=== PATIENT | male | born 1940 | race Caucasian/White ===

== ENCOUNTER 2021-03-31 20:39 | Emergency (ER) | payer OTHER ==
[~2021-03-31] VITALS: Ht 172.7 cm; Wt 76.2 kg
[~2021-03-31 20:39] MED LIST: AMITRIPTYLINE H10 M1 PO; AMOXICILLIN500 M1 PO; ASPIR 8181 MG PO; ATIVAN0.5 MG PO; GEMFIBROZIL 60600 MG PO; MAXZIDE-25 MG1 EACH PO; NEXIUM40 MG PO; NIFEDIPINE ER30 M1 PO; NORCO 5-325 TA1 EACH PO; ONDANSETRON HCL4 M2 PO; SINGULAIR 10 MG10 M1 PO; VENTOLIN HFA 1818 GM INH
[2021-03-31 21:18] LABS: ABSOLUTE EOSINOPHILS 0.2 thou/uL (0.0-0.7); ABSOLUTE LYMPHOCYTES 0.7 thou/uL (0.8-5.3); ABSOLUTE MONOCYTES 0.7 thou/uL (0.0-1.2); ABSOLUTE NEUTROPHILS 5.5 thou/uL (1.6-8.1); BASOPHILS 0.4 %; HEMATOCRIT 46.7 % (42.0-52.0); HEMOGLOBIN 15.3 gm/dL (14.0-18.0); LYMPHOCYTES 10.3 %; MCH 28.6 pg (26.0-34.0); MCHC 32.9 g/dL (28.0-37.0); MONOCYTES 9.8 %; MPV 7.6 fl. (7.2-11.1); NUCLEATED RBCS 0 /100WBC; PLATELET COUNT* 243 thou/uL (150-400); POLYS 76.5 %; RBC 5.37 mil/uL (4.50-6.00); WBC 7.2 thou/uL (4.0-11.0)
[2021-03-31 21:27] LABS: CALCIUM 9.3 mg/dL (8.5-10.1); CREATININE 1.3 mg/dL (0.6-1.3); POTASSIUM 4.9 mmol/L (3.5-5.1)
[2021-03-31 21:32] LABS: ALBUMIN 3.3 g/dL (3.4-5.0); MAGNESIUM 1.9 mg/dL (1.8-2.4); TOTAL BILIRUBIN 0.5 mg/dL (<0.1-1.0)
[2021-03-31 21:33] LABS: APTT 27.6 Seconds (25.0-31.3); INR 1.1
[2021-03-31 21:42] LABS: BE -0.6 mmol/L (-2 to +3); PCO2 31.8 mmHg (35.0-45.0); pH 7.461 (7.340-7.450)
[2021-03-31 21:43] LABS: PO2 57.7 mmHg (75.0-100.0)
[2021-03-31 21:48] LABS: URINE BILIRUBIN NEGATIVE (Negative); URINE BLOOD NEGATIVE (Negative); URINE CLARITY CLEAR; URINE COLOR YELLOW; URINE GLUCOSE-RANDOM NEGATIVE (Negative); URINE KETONES NEGATIVE (Negative); URINE LEUKOCYTES-REFLEX NEGATIVE (Negative); URINE NITRITE-REFLEX NEGATIVE (Negative); URINE PROTEIN 3+ (Negative); URINE SPECIFIC GRAVITY 1.025 (1.005-1.030)
[2021-03-31 22:12] LABS: CRYSTALS None Seen /LPF (None Seen); FINE GRANULAR CASTS 4-10 Moderate /LPF (None Seen); HYALINE CASTS 4-10 Moderate /LPF (None Seen); MUCUS 4-6 Moderate strn/LPF (None Seen); SQUAMOUS 0-3 Few /LPF (0-3); URINE RBC 3-10 Few /HPF (0-2); URINE WBC-REFLEX 0-5 Rare /HPF (0-5)
[2021-04-01 02:48] VITALS: BP 138/85
--- NOTE | 2021-04-01 11:04 | EKG ---
[place] [address] ELECTROCARDIOGRAM REPORT Name: MARÍA RIVAS Room: [facility]#: [id number] Admission: 03/31/21 Attend Phys: Discharge: 04/01/21 Date of : 40 Date of Service: 03/31/212037 Report #: [id number] THIS REPORT FOR: //name// [facility] ED Test Date: 2021-03-31 Test Time: 20:38:14 Pat Name: MARÍA RIVAS Department: Room: Gender: Private Client Advisor: [place] : 1940 Requested By: Loretta Renee Order Number: [id number] MD: Efren Tavares Measurements Intervals [place] Rate: 124 P: -84 TX: 97 QRS: 163 QRSD: 158 T: 16 QT: 374 QTc: 538 Interpretive Statements Sinus tachycardia Ventricular premature complex Right bundle branch block Baseline wander in lead(s) II,III,aVF,V6 No previous ECG available for comparison Electronically Signed On 04-01-2021 11:04:26 SENIOR FINANCE MANAGER by Efren Tavares [email or web address] <ELECTRONICALLY SIGNED> By: Efren Tavares MD, [facility] 04/01/21 1104 37 37 Efren Tavares MD, [facility] /EPI
== END 2021-04-01 02:48 | disposition home or self-care (01) ==
LOC: M.ERS 20:39
PROVIDERS: Personal Emergency Response Attendant
DX: J96.90 Respiratory failure, unspecified, unspecified whether with hypoxia or hypercapnia (principal); Z20.822 Contact with and (suspected) exposure to COVID-19; J84.9 Interstitial pulmonary disease, unspecified; I10 Essential (primary) hypertension; Z79.82 Long term (current) use of aspirin; Z79.899 Other long term (current) drug therapy

== ENCOUNTER 2021-04-02 07:56 | Inpatient (IN) | payer OTHER ==
[~2021-04-02] VITALS: Ht 172.7 cm; Wt 75.3 kg
--- NOTE | ~2021-04-02 | EMS ---
[facility] [address] [place] [address] EMS Patient Care Report Name: MARÍA RIVAS Room: [facility]#: [id number] Admission: 04/02/21 Attend Phys: Discharge: Date of : 40 Report #: [id number] THIS REPORT FOR: //name// Report Transmitted: 04/02/2021 09:03 EMS Care Summary [facility] Incident 21-1221 @ 04/02/2021 07:05 Incident Location [address] [place] [address] Patient MARÍA RIVAS Male, 80 Years 1940 Patient Address [address] [place] [address] Patient History Chronic Obstructive Pulmonary Disease (COPD),Diabetes, Patient Allergies No known allergies, Patient Medications DuoNeb, Chief Complaint respiratory distress Disposition Transported Lights/Oxly Dispatch Reason Breathing Problem Transported To [facility] Narrative Dispatched to a residence for 80y/0 male SOB. Upon arrival pt. was sitting in a chair in tripod position. Pt. had O2 via NC at 4lpm. Pt. was A&O and able to speak 1 to 2 words at a time. Pt. fingers were blue and he was using accessory muscles when breathing. Pt. stated that he injured [place] [address] EMS Patient Care Report Name: MARÍA RIVAS Room: [facility]#: [id number] Admission: 04/02/21 Attend Phys: Discharge: Date of : 40 Report #: [id number] was treated and released by ED. Pt. stated that he has not been able to take a full breath since then. Pt. has history of COPD. Pt. had Duoneb x3 at home. Breath sounds were wheezes in upper robb and rales in left lower field. Pt. was moved to ambulance where Albuterol neb. was started, IV was started, 125mg Solu-Medrol IV administered. Pt. initial O2 sat. was 85% on home O2 and improved to 95% post treatments. Pt. stated that he felt able to take deeper breaths post treatments. Pt. fingers were less blue. Pt. was speaking more complete sentences. Pt. was transported emergency to [place] for emergency and respiratory services. Initial Vitals @07:30P: 150,R: 30,BP: 160/100,GCS: 15,SpO2: 93,Revised Trauma: 11, @07:43P: 150,R: 30,BP: 170/102,GCS: 15,SpO2: 95,Revised Trauma: 11, @07:48 @07:14P: 140,R: 32,BP: 144/93,GCS: 15,SpO2: 85,Revised Trauma: 11, Impression Acute Respiratory Distress (Dyspnea) Procedures @PTAOxygen FlowRate: 4 Device: Nasal Cannula (NC) Response: UnchangedSucceeded @07:30 Oxygen FlowRate: 6 Device: Nebulizer Response: ImprovedSucceeded @07:25 IV Therapy - Saline Lock 20cc (20 ga) Site: Hand-Right Response: UnchangedSucceeded @07:30 Albuterol - 3 Milligrams (mg) - Nebulized Response: Improved @07:45 Albuterol - 3 Milligrams (mg) - Nebulized Response: Improved @07:30 Solu-Medrol - 125 Milligrams (mg) - Inhalation Response: Improved Timeline RAYON CONER,Oxygen FlowRate: 4 Device: Nasal Cannula (NC) Response: UnchangedSucceeded, 07:03,Call Received 07:05,Dispatched 07:08,En Route 07:12,Initial Responder On Scene 07:12,On Scene 07:13,At Patient 07:14,BP: 144/93 M,PULSE: 140,RR: 32 R,SPO2: 85 Ox,ETCO2: ,BG: ,PAIN: ,GCS: 15, 07:25,IV Therapy - Saline Lock 20cc 20 ga Site: Hand-Right,Response: UnchangedSucceeded, 07:30,Oxygen FlowRate: 6 Device: Nebulizer Response: ImprovedSucceeded, 07:30,Albuterol - 3 Milligrams (mg) - Nebulized,Response: Improved 07:30,Solu-Medrol - 125 Milligrams (mg) - Inhalation,Response: Improved 07:30,BP: 160/100 M,PULSE: 150,RR: 30 R,SPO2: 93 Ox,ETCO2: ,BG: ,PAIN: ,GCS: 15, [place] [address] EMS Patient Care Report Name: RIVASMARÍA Adriel Room: [facility]#: [id number] Admission: 04/02/21 Attend Phys: Discharge: Date of : 40 Report #: [id number] 07:36,Depart Scene 07:43,BP: 170/102 M,PULSE: 150,RR: 30 R,SPO2: 95 Ox,ETCO2: ,BG: ,PAIN: ,GCS: 15, 07:45,Albuterol - 3 Milligrams (mg) - Nebulized,Response: Improved 07:48,BP: / M,PULSE: ,RR: R,SPO2: Ox,ETCO2: ,BG: ,PAIN: ,GCS: , 07:54,At Destination 07:56,Transfer Patient 08:14,Call Closed 08:28,In District Disclaimer v1.1 Copyright 2020 [employer] This EMS Care Summary contains data elements from the applicable legal record (which may be displayed differently). It is designed to provide pertinent information for the following purposes: continuity of care, clinical quality, and state data reporting. The complete legal record is available to ED staff and administrators of the receiving hospital in [employer]'s Patient Tracker. All data is provided "as is."
[2021-04-02 08:02] VITALS: BP 192/105
[2021-04-02 09:12] LABS: ABSOLUTE LYMPHOCYTES 0.5 thou/uL (0.8-5.3); ABSOLUTE MONOCYTES 0.9 thou/uL (0.0-1.2); ABSOLUTE NEUTROPHILS 12.1 thou/uL (1.6-8.1); BASOPHILS 0.2 %; EOSINOPHILS 0.2 %; HEMATOCRIT 50.3 % (42.0-52.0); HEMOGLOBIN 16.6 gm/dL (14.0-18.0); MCH 28.9 pg (26.0-34.0); MCHC 32.9 g/dL (28.0-37.0); MCV 87.7 fL (80.0-100.0); MONOCYTES 6.4 %; MPV 7.8 fl. (7.2-11.1); NUCLEATED RBCS 0 /100WBC; PLATELET COUNT* 309 thou/uL (150-400); POLYS 89.2 %; RBC 5.74 mil/uL (4.50-6.00); RDW-CV 14.2 % (10.5-14.5); WBC 13.6 thou/uL (4.0-11.0)
[2021-04-02 09:16] LABS: CALCIUM 9.6 mg/dL (8.5-10.1); CREATININE 1.6 mg/dL (0.6-1.3)
[2021-04-02 09:26] LABS: ALBUMIN 3.7 g/dL (3.4-5.0); MAGNESIUM 2.1 mg/dL (1.8-2.4); TOTAL BILIRUBIN 0.6 mg/dL (<0.1-1.0); TOTAL PROTEIN 7.8 g/dL (6.4-8.2)
[2021-04-02 09:41] LABS: BE -4.8 mmol/L (-2 to +3); PCO2 35.9 mmHg (35.0-45.0); PO2 107.5 mmHg (75.0-100.0); pH 7.359 (7.340-7.450)
[2021-04-02 15:45] VITALS: BP 129/89
[2021-04-02 16:00] VITALS: BP 127/89
[2021-04-02 20:00] VITALS: BP 120/87
[2021-04-03] VITALS: BP 148/90
[2021-04-03 04:00] VITALS: BP 131/91
[2021-04-03 08:00] VITALS: BP 137/96
[2021-04-03 08:28] LABS: CALCIUM 9.3 mg/dL (8.5-10.1); CREATININE 1.4 mg/dL (0.6-1.3); MAGNESIUM 2.4 mg/dL (1.8-2.4); PHOSPHORUS* 5.3 mg/dL (2.5-4.9); POTASSIUM 4.7 mmol/L (3.5-5.1)
[2021-04-03 14:52] VITALS: BP 144/81
--- NOTE | 2021-04-03 15:14 | EKG ---
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: REGGIE : 1940 Requested By: Chris Landers Order Number: [id number] MD: Garcia Abdalla Measurements Intervals [place] Rate: 150 P: 0 ME: 66 QRS: 169 QRSD: 152 T: 9 QT: 339 QTc: 536 Interpretive Statements Tachycardia likely sinus Artifact in lead(s) I,V2,V3,V4,V5,V6 Compared to ECG 03/31/2021 20:38:14 Tachycardia rate increased Electronically Signed On 04-03-2021 15:14:11 WINE SPECIALIST by Garcia Abdalla [email or web address] <ELECTRONICALLY SIGNED> By: Garcia Abdalla MD, FACC 04/03/21 1514 08 0802 Garcia Abdalla MD, FACC /EPI
[2021-04-03 19:00] VITALS: BP 131/88
[2021-04-03 20:00] VITALS: BP 138/93
[2021-04-04 00:30] VITALS: BP 104/71
[2021-04-04 04:00] VITALS: BP 101/66
[2021-04-04 08:00] VITALS: BP 98/64
[2021-04-04 08:43] LABS: HEMATOCRIT 47.7 % (42.0-52.0); HEMOGLOBIN 15.6 gm/dL (14.0-18.0); MCH 28.7 pg (26.0-34.0); MCHC 32.7 g/dL (28.0-37.0); MCV 87.8 fL (80.0-100.0); MPV 8.1 fl. (7.2-11.1); RBC 5.44 mil/uL (4.50-6.00); RDW-CV 14.6 % (10.5-14.5); WBC 9.9 thou/uL (4.0-11.0)
[2021-04-04 09:00] LABS: ALBUMIN 2.9 g/dL (3.4-5.0); CALCIUM 9.2 mg/dL (8.5-10.1); CREATININE 1.2 mg/dL (0.6-1.3); POTASSIUM 4.4 mmol/L (3.5-5.1); TOTAL BILIRUBIN 0.6 mg/dL (<0.1-1.0); TOTAL PROTEIN 6.5 g/dL (6.4-8.2)
[2021-04-04 11:34] VITALS: BP 102/70
--- NOTE | 2021-04-04 14:00 | CON ---
[address] [address] CONSULTATION Name: MARÍA RIVAS Room: [address] IN M.R.#: [id number] Admission: 04/02/21 Attend Phys: Kiran Yu Discharge: Date of : 40 Report #: [id number] THIS REPORT FOR: cc: Mikie Whitaker Ahmad W. DO Liston, Michael J. MD [facility] ~ cc: Mikie Whitaker DO DATE OF CONSULTATION: 04/03/2021 CARDIOLOGY CONSULT INDICATION: Respiratory distress. HISTORY OF PRESENT ILLNESS: The patient is a very pleasant 80-year-old gentleman with a long history of chronic lung disease and pulmonary fibrosis. 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 He did smoke remotely. He has had significant exposure. He has been on 3 liters to 4 liters of oxygen at home chronically. He was admitted to the hospital on 04/02 with progressive respiratory distress. He is not having any chest pain. Cardiac enzymes were unremarkable. In the Emergency Room, he had a tachycardia. He has a right bundle branch block at baseline. Presently, he has a sinus tachycardia with right bundle branch block. Outside echocardiogram suggests normal LV systolic function. I do not have a formal report. There is no history of coronary artery disease. The patient was told by outside physician. He may have some diastolic heart failure. He had a syncopal episode after coughing at home. He did strike his left side and has significant tenderness and pain with deep inspiration in this region. Chest x-ray suggests pneumonitis versus pulmonary vascular congestion and cardiomegaly. At the time of interview, the patient appears stable. He is not having chest pain with the exception of his left-sided tenderness. PAST MEDICAL HISTORY: 1. Pulmonary fibrosis. 2. Hypertension. 3. Meniere's. 4. Rotator cuff tear. 5. Type 2 diabetes mellitus. FAMILY HISTORY: Positive for heart disease. SOCIAL HISTORY: The patient quit smoking over a year ago. He does [place] [address] CONSULTATION Name: MARÍA RIVAS Room: [address] IN [facility]#: [id number] Admission: 04/02/21 Attend Phys: Kiran Yu Discharge: Date of : 40 Report #: [id number] REVIEW OF SYSTEMS: Positive for dyspnea, mild orthopnea, no paroxysmal nocturnal dyspnea. He has some joint pain. He has left sided chest discomfort from tenderness. Otherwise, 14-point review of systems unremarkable. PHYSICAL EXAMINATION: VITAL SIGNS: Blood pressure 137/96, pulse is in the 100s and regular. Telemetry shows sinus rhythm with right bundle branch block. GENERAL: Pleasant gentleman. HEENT: Head is normocephalic, atraumatic. Extraocular muscles intact. BiPAP mask in place. NECK: Neck shows no jugular venous distention. CHEST: Reveals diminished breath sounds throughout. I do not appreciate obvious wheezes or rales. CARDIAC: Distant S1, S2 without gallop or murmur. ABDOMEN: Soft, nontender. EXTREMITIES: Without significant edema. SKIN: Dry. LABORATORY DATA: Reviewed. Electrolytes within normal limits. BUN 43, creatinine 1.4, serum glucose 141. LFTs within normal limits. NT-proBNP 11,081. High sensitivity troponin 43. Coags normal. CBC unremarkable with the exception of a white blood cell count of 13.6. Chest x-ray, [id number] bilateral mid and lower lung nonconsolidative infiltration with low lung volumes and cardiomegaly. IMPRESSION AND RECOMMENDATIONS: 1. Probable diastolic heart failure, pounding respiratory failure due to pulmonary fibrosis and chronic obstructive pulmonary disease. Echocardiogram ordered and pending. The patient's volume status appears stable at this point in time. He may benefit from mild diuresis. We will give a single bolus IV Lasix and follow labs in a.m. 2. Chest pain secondary to contusion of the left chest. 3. Pulmonary fibrosis from chronic lung disease. Likely has some element of pulmonary hypertension. Echocardiogram ordered and pending. 4. Chronic obstructive pulmonary disease per hospitalist and Pulmonology. 5. Hypertension. Blood pressure adequately controlled. 6. Tachycardia, likely physiologic. We will follow. <ELECTRONICALLY SIGNED> By: Garcia Abdalla MD, FACC 04/04/21 1400 110 1817Garcia Abdalla MD, FACC /nt
[2021-04-04 19:46] VITALS: BP 119/79
[2021-04-05] VITALS: BP 118/77
[2021-04-05 04:00] VITALS: BP 125/80
[2021-04-05 05:42] LABS: HEMATOCRIT 45.8 % (42.0-52.0); HEMOGLOBIN 15.1 gm/dL (14.0-18.0); MCH 28.6 pg (26.0-34.0); MCHC 32.9 g/dL (28.0-37.0); MCV 86.8 fL (80.0-100.0); MPV 8.3 fl. (7.2-11.1); RBC 5.27 mil/uL (4.50-6.00); WBC 9.4 thou/uL (4.0-11.0)
[2021-04-05 05:53] LABS: CALCIUM 8.9 mg/dL (8.5-10.1); CREATININE 1.2 mg/dL (0.6-1.3); POTASSIUM 4.3 mmol/L (3.5-5.1)
[2021-04-05 08:00] VITALS: BP 135/89
[2021-04-05 12:00] VITALS: BP 120/76
--- NOTE | 2021-04-05 13:45 | 2DMMODE ---
[place] [address] 2 D/M-MODE ECHOCARDIOGRAM Name: MARÍA RIVAS Adriel Room: [address] ADM IN [facility]#: [id number] Admission: 04/02/21 Attend Phys: Jerome Bhardwaj Discharge: Date of : 40 Date of Service: 04/05/21 1344 Report #: [id number] THIS REPORT FOR: cc: Mikie Whitaker Ahmad W. DO Blick,Lamont Rangel MD [facility] ~ APPROVED REPORT Study performed: 04/05/2021 10:50:14 EXAM: Comprehensive 2D, Doppler, and color-flow Echocardiogram Patient Location: In-Patient Room #: [facility] Status: routine BSA: 1.89 HR: 97 bpm BP: 135/89 mmHg Rhythm: NSR Other Information Study Quality: Good Indications Dyspnea 2D Dimensions IVSd: 12.02 (7-11mm) LVOT Diam: 20.29 (18-24mm) LVDd: 50.29 mm PWd: 11.28 (7-11mm) Ascending Ao: 33.99 (22-36mm) LVDs: 42.67 (25-40mm) Aortic Root: 35.17 mm Volumes Left Atrial Volume (Systole) LA ESV Index: 31.10 mL/m2 Aortic Valve AoV Peak Pino.: 1.20 m/s AO Peak Gr.: 5.74 mmHg LVOT Max P.22 mmHg AO Mean Gr.: 3.30 mmHg LVOT Mean P.59 mmHg LVOT Max V: 0.90 m/s AO V2 VTI: 18.79 cm LVOT Mean V: 0.58 m/s JAMA (VTI): 2.44 cm2 LVOT V1 VTI: 14.19 [place] [address] 2 D/M-MODE ECHOCARDIOGRAM Name: MARÍA RIVAS Room: [address] IN ..#: [id number] Admission: 04/02/21 Attend Phys: Jerome Bhardwaj Discharge: Date of : 40 Date of Service: 04/05/21 1344 Report #: [id number] Mitral Valve E/A Ratio: 0.68 MV Decel. Time: 164.84 ms MV E Max Pino.: 0.73 m/s MV PHT: 47.80 ms MVA (PHT): 4.60 cm2 TDI E/Lateral E': 12.17 E/Medial E': 14.60 Medial E' Pino.: 0.05 m/s Lateral E' Pino.: 0.06 m/s Pulmonary Valve PV Peak Pino.: 0.69 m/s PV Peak Gr.: 1.89 mmHg Tricuspid Valve RAP Estimate: 5.00 mmHg TR Peak Gr.: 44.66 mmHg RVSP: 49.00 mmHg PA Pressure: 49.00 mmHg Left Ventricle The left ventricle is normal size. There is global hypokinesis of the left ventricle. Mild concentric left ventricular hypertrophy. Left ventricular systolic function is moderately decreased. LVEF is 35-40%. Grade I - abnormal relaxation pattern. Right Ventricle Right ventricle is dilated. Right ventricle is moderately hypokinetic. Atria Left atrium is mildly dilated. Right atrium is dilated. Aortic Valve Moderate aortic valve sclerosis. No aortic regurgitation is present. There is no aortic valvular stenosis. Mitral Valve There is mitral annular calcification. Mild mitral regurgitation. No evidence of mitral valve stenosis. Tricuspid Valve The tricuspid valve is normal in structure. Mild tricuspid regurgitation. estimated pa pressure 50 [place] [address] 2 D/M-MODE ECHOCARDIOGRAM Name: MARÍA RIVAS Room: [address] IN [facility]#: [id number] Admission: 04/02/21 Attend Phys: Jerome Bhardwaj Discharge: Date of : 40 Date of Service: 04/05/21 1344 Report #: [id number] The pulmonary valve is normal in structure. Trace pulmonic regurgitation. Great Vessels The aortic root is normal in size. IVC is normal in size and collapses >50% with inspiration. Pericardium There is no pericardial effusion. <Conclusion> Mild concentric left ventricular hypertrophy. LVEF is 35-40%. Right ventricle is dilated. Left atrium is mildly dilated. Moderate aortic valve sclerosis. Mild mitral regurgitation. Mild tricuspid regurgitation. estimated pa pressure 50 mm Hg <ELECTRONICALLY SIGNED> By: Lamont Ricketts MD, FACC 04/05/21 1344 1344 1344 Lamont Ricketts MD, FACC /INF
[2021-04-05 15:48] LABS: APTT 26.4 Seconds (25.0-31.3); INR 1.1; PROTIME 10.9 Seconds (9.20-11.50)
[2021-04-05 16:00] VITALS: BP 150/57
[2021-04-05 20:00] VITALS: BP 125/80
[2021-04-06 02:15] VITALS: BP 112/75
[2021-04-06 04:23] LABS: HEMATOCRIT 47.6 % (42.0-52.0); HEMOGLOBIN 15.4 gm/dL (14.0-18.0); MCH 28.2 pg (26.0-34.0); MCHC 32.3 g/dL (28.0-37.0); MCV 87.3 fL (80.0-100.0); MPV 7.9 fl. (7.2-11.1); NUCLEATED RBCS 0 /100WBC; PLATELET COUNT* 253 thou/uL (150-400); RBC 5.46 mil/uL (4.50-6.00); RDW-CV 14.2 % (10.5-14.5); WBC 9.4 thou/uL (4.0-11.0)
[2021-04-06 04:39] LABS: ALBUMIN 2.8 g/dL (3.4-5.0); CALCIUM 8.5 mg/dL (8.5-10.1); CREATININE 1.1 mg/dL (0.6-1.3); MAGNESIUM 2.5 mg/dL (1.8-2.4); POTASSIUM 4.7 mmol/L (3.5-5.1); TOTAL BILIRUBIN 0.7 mg/dL (<0.1-1.0); TOTAL PROTEIN 5.9 g/dL (6.4-8.2)
[2021-04-06 06:54] VITALS: BP 110/72
[2021-04-06 07:11] LABS: ABSOLUTE LYMPHOCYTES 0.3 thou/uL (0.8-5.3); ABSOLUTE MONOCYTES 0.4 thou/uL (0.0-1.2); ABSOLUTE NEUTROPHILS 8.7 thou/uL (1.6-8.1); PLATELET ESTIMATE ADEQUATE
[2021-04-06 12:22] VITALS: BP 117/73
[2021-04-06] MEDS ORDERED: LASIX 40 MG TAB40 M1 PO (12:48)
[2021-04-06] MEDS ORDERED: PREDNISONE 10 M10 MG PO (12:48)
[2021-04-06] MEDS ORDERED: COZAAR 50 MG TA50 M1 PO (12:48)
[2021-04-06] MEDS ORDERED: CEFDINIR300 MG PO (12:48)
[2021-04-06] MEDS ORDERED: MUCINEX600 MG PO (12:48)
[2021-04-06] MEDS ORDERED: SPIRONOLACTONE25 MG PO (12:48)
[2021-04-06] MEDS ORDERED: METOPROLOL SUCC25 M1 PO (12:48)
[2021-04-06] MEDS ORDERED: ACIDOPHILUS1 EAC4 PO (12:48)
[2021-04-06 13:14] VITALS: BP 117/73
[2021-04-06 18:30] VITALS: BP 117/73
[2021-04-07 21:06] LABS: ANA INTERPRETATION Negative (())
== END 2021-04-06 17:54 | disposition home or self-care (01) | DRG 177 ==
LOC: M.ERS 07:56 → M.TBA-ER 10:29 → M.2W 10:29
PROVIDERS: Family Medicine; Internal Medicine Critical Care Medicine; ADMIT Internal Medicine; ATTEND Internal Medicine
PROC: 5A09357 Assistance with Respiratory Ventilation, Less than 24 Consecutive Hours, Continuous Positive Airway Pressure (ICD-10-PCS; principal; 2021-04-02)
DX: J15.6 Pneumonia due to other Gram-negative bacteria (principal); J96.21 Acute and chronic respiratory failure with hypoxia; I50.30 Unspecified diastolic (congestive) heart failure; S27.321A Contusion of lung, unilateral, initial encounter; N17.9 Acute kidney failure, unspecified; E11.9 Type 2 diabetes mellitus without complications; S20.212A Contusion of left front wall of thorax, initial encounter; X58.XXXA Exposure to other specified factors, initial encounter; I11.0 Hypertensive heart disease with heart failure; J43.9 Emphysema, unspecified; G47.33 Obstructive sleep apnea (adult) (pediatric); J84.112 Idiopathic pulmonary fibrosis; Z20.822 Contact with and (suspected) exposure to COVID-19; Z82.49 Family history of ischemic heart disease and other diseases of the circulatory system; Z87.891 Personal history of nicotine dependence; Y93.89 Activity, other specified; Y92.89 Other specified places as the place of occurrence of the external cause; Y99.8 Other external cause status; Z83.49 Family history of other endocrine, nutritional and metabolic diseases; Z83.3 Family history of diabetes mellitus

== ENCOUNTER → 2021-04-13 | Outpatient (CLI) | payer OTHER ==
[~2021-04-13] MED LIST changes: +ACIDOPHILUS1 EAC4 PO; +CEFDINIR300 MG PO; +COZAAR 50 MG TA50 M1 PO; +LASIX 40 MG TAB40 M1 PO; +METOPROLOL SUCC25 M1 PO; +MUCINEX600 MG PO; +PREDNISONE 10 M10 MG PO; +SPIRONOLACTONE25 MG PO
[2021-04-13 12:02] LABS: ALBUMIN 3.3 g/dL (3.4-5.0); ALKALINE PHOSPHATASE 94 U/L (46-116); ANION GAP 6 mmol/L (7-16); BUN 37 mg/dL (7-18); CALCIUM 9.3 mg/dL (8.5-10.1); CHLORIDE 98 mmol/L (98-107); CHOLESTEROL 122 mg/dL (<200); CO2 34 mmol/L (21-32); CREATININE 1.4 mg/dL (0.6-1.3); GLUCOSE 103 mg/dL (70-99); HDL CHOLESTEROL 44 mg/dL (>40); LDL CHOLESTEROL 49 mg/dL (<100); SGOT 23 U/L (15-37); SGPT 53 U/L (30-65); SODIUM 138 mmol/L (136-145); TC:HDL 2.8 Ratio (Not establshd); TOTAL BILIRUBIN 0.6 mg/dL (<0.1-1.0); TOTAL PROTEIN 6.6 g/dL (6.4-8.2); TRIGLYCERIDE 149 mg/dL (<150); VLDL 30 mg/dL (<40)
[2021-04-13 12:04] LABS: SERUM ASSESSMENT Clear
== END ==
LOC: M.LAB 11:32
PROVIDERS: ATTEND Registered Nurse
DX: I50.42 Chronic combined systolic (congestive) and diastolic (congestive) heart failure (principal); I42.8 Other cardiomyopathies

== ENCOUNTER 2021-04-24 16:33 | Inpatient (IN) | payer OTHER ==
[~2021-04-24] VITALS: Ht 172.7 cm; Wt 67.1 kg
[~2021-04-24 16:33] MED LIST changes: +ADULT LOW DOSE81 MG PO; -ASPIR 8181 MG PO
[2021-04-24] MEDS ORDERED: NORTRIPTYLINE H10 M2 PO (16:44)
[2021-04-24] MEDS ORDERED: EFFER-K 20 MEQ20 ME1 PO (16:44)
[2021-04-24 16:53] LABS: ABSOLUTE EOSINOPHILS 0.2 thou/uL (0.0-0.7); ABSOLUTE LYMPHOCYTES 0.4 thou/uL (0.8-5.3); ABSOLUTE MONOCYTES 0.4 thou/uL (0.0-1.2); ABSOLUTE NEUTROPHILS 7.4 thou/uL (1.6-8.1); BASOPHILS 0.3 %; EOSINOPHILS 2.7 %; HEMATOCRIT 51.6 % (42.0-52.0); HEMOGLOBIN 16.9 gm/dL (14.0-18.0); LYMPHOCYTES 5.1 %; MCH 28.4 pg (26.0-34.0); MCHC 32.8 g/dL (28.0-37.0); MCV 86.5 fL (80.0-100.0); MONOCYTES 4.8 %; MPV 8.1 fl. (7.2-11.1); NUCLEATED RBCS 0 /100WBC; PLATELET COUNT* 199 thou/uL (150-400); POLYS 87.1 %; RBC 5.96 mil/uL (4.50-6.00); WBC 8.6 thou/uL (4.0-11.0)
[2021-04-24 17:03] LABS: CALCIUM 8.8 mg/dL (8.5-10.1); CREATININE 1.6 mg/dL (0.6-1.3)
[2021-04-24 17:13] LABS: ALBUMIN 2.9 g/dL (3.4-5.0); TOTAL BILIRUBIN 0.5 mg/dL (<0.1-1.0); TOTAL PROTEIN 6.4 g/dL (6.4-8.2)
[2021-04-24 22:04] VITALS: BP 115/84
[2021-04-24 23:40] VITALS: BP 100/72
[2021-04-25 03:40] VITALS: BP 114/82
[2021-04-25 09:19] VITALS: BP 122/81
[2021-04-25] MEDS ORDERED: TOPROL XL25 MG PO (11:16)
[2021-04-25] MEDS ORDERED: SPIRONOLACTONE25 MG PO (11:16)
[2021-04-25] MEDS ORDERED: KLOR-CON M2020 MEQ PO (11:18)
[2021-04-25] MEDS ORDERED: STIOLTO RESPIMAT4 GM INH (11:19)
[2021-04-25] MEDS ORDERED: METFORMIN HCL500 M2 PO (11:26)
--- NOTE | 2021-04-25 11:28 | EKG ---
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 : 1940 Requested By: Chris Landers Order Number: [id number] MD: Lamont Ricketts Measurements Intervals [place] Rate: 139 P: -83 NC: 112 QRS: 125 QRSD: 148 T: 30 QT: 374 QTc: 569 Interpretive Statements Sinus or ectopic atrial tachycardia Left atrial enlargement RBBB and LPFB Artifact in lead(s) I,III,aVL,V4 Compared to ECG 04/02/2021 08:02:01 rate has slowed Electronically Signed On 04-25-2021 11:27:45 DRY FOLDER CLOTH by Lamont Ricketts [email or web address] <ELECTRONICALLY SIGNED> By: Lamont Ricketts MD, FACC 04/25/21 1127 1636 1636 Lamont Ricketts MD, FAC /EPI
[2021-04-25 13:19] VITALS: BP 109/76
[2021-04-25 17:17] VITALS: BP 113/79
[2021-04-25 20:06] VITALS: BP 116/77
[2021-04-26] VITALS (7 sets, daily range): BP systolic 96–121; BP diastolic 56–85
[2021-04-26 06:31] LABS: CREATININE 1.6 mg/dL (0.6-1.3)
--- NOTE | 2021-04-26 10:09 | CON ---
[address] [address] CONSULTATION Name: MARÍA RIVAS Room: [place] [address] ADM IN Angela.Adriel.#: [id number] Admission: 04/24/21 Attend Phys: Kiran Bay Discharge: Date of : 40 Report #: [id number] THIS REPORT FOR: cc: Mikie Whitaker Ahmad W. DO Blick, David R. MD [facility] ~ cc: Mikie Whitaker DO DATE OF CONSULTATION: 04/25/2021 CARDIOLOGY CONSULTATION HISTORY OF PRESENT ILLNESS: The patient is an 80-year-old single white male who I was asked to see in the hospital today after complained of being weak. The patient has a history of a cardiomyopathy and is followed by my partner, Dr. Abdalla. He has no history of coronary artery disease. He was actually just admitted to [facility] 2 weeks ago after a syncopal spell. He is now living with his daughter. Recently, he has complained of being weak and could not walk. He also notes some shortness of breath and cough. He does have oxygen at home. He finally called EMS and brought to [facility] yesterday and admitted. PAST MEDICAL HISTORY: He has had previous shoulder surgery. He has a history of hypertension, glucose intolerance. CURRENT MEDICATIONS: Consists of albuterol inhaler, Elavil, aspirin, Lasix, gemfibrozil, losartan, nifedipine, nortriptyline, potassium. ALLERGIES: He has no known drug allergies. FAMILY HISTORY: Positive for heart disease. SOCIAL HISTORY: He is single, lives in [place]. He uses a walker. Quit smoking in 2017. No alcohol abuse. REVIEW OF SYSTEMS: He has had no history of stroke. He has COPD. No history of liver disease, kidney disease, cancer, psychiatric illness, chronic skin condition. PHYSICAL EXAMINATION: GENERAL: Revealed an elderly male, lying in bed, appeared in no acute distress. VITAL SIGNS: He had a blood pressure of 120/80, pulse 80s. Afebrile. HEENT: He is anicteric. Conjunctivae pink. Mucosa moist. NECK: Veins not appear distended. CHEST: Revealed decreased breath sounds bilaterally. CARDIAC: Regular rate and rhythm, no [place] [address] CONSULTATION Name: MARÍA RIVAS AMISH Room: [address] IN [facility]#: [id number] Admission: 04/24/21 Attend Phys: Kiran Bay Discharge: Date of : 40 Report #: [id number] ABDOMEN: Soft. EXTREMITIES: Had no pitting edema. SKIN: Cool and dry. NEUROLOGIC: Nonfocal. LABORATORY DATA: His ECG showed a sinus rhythm with a right bundle branch block, nonspecific ST and T-wave changes. The patient had an echocardiogram done on 04/02/2021 here at [facility] that showed ejection fraction of 35%, left atrial enlargement, aortic sclerosis, mild mitral regurgitation and moderate pulmonary hypertension. His x-rays last night showed cardiomegaly, interstitial infiltrates were noted. He actually had a venous Doppler study performed of his legs 2 weeks ago that showed no DVT. CT scan of the chest 3 weeks ago showed hyperinflated lung robb, cardiomegaly, atherosclerosis. His lab work creatinine 1.6, potassium 5.0, his albumin 2.9. High sensitivity troponin 50. BNP 7951. His hemoglobin was 16.9. His COVID antigen stat test was negative. IMPRESSION AND RECOMMENDATIONS: 1. Chronic obstructive pulmonary disease exacerbation. Recommend bronchodilators. 2. Cardiomyopathy. The patient is on an ARB. I would consider adding Aldactone and a beta veto. 3. Hypertension. The patient is on an ARB and calcium veto. 4. Hyperlipidemia. The patient is on gemfibrozil for high triglycerides. 5. Previous tobacco abuse. Fortunately, the patient quit smoking. <ELECTRONICALLY SIGNED> By: Lamont Ricketts MD, FACC 04/26/21 1009 0750 0823Dadiana Ricketts MD, FACC /nt
[2021-04-27] VITALS: BP 103/61
[2021-04-27 05:00] VITALS: BP 92/60
[2021-04-27 05:17] LABS: ABSOLUTE EOSINOPHILS 0.4 thou/uL (0.0-0.7); ABSOLUTE LYMPHOCYTES 0.7 thou/uL (0.8-5.3); ABSOLUTE MONOCYTES 0.6 thou/uL (0.0-1.2); ABSOLUTE NEUTROPHILS 6.6 thou/uL (1.6-8.1); BASOPHILS 0.3 %; HEMATOCRIT 50.3 % (42.0-52.0); HEMOGLOBIN 16.5 gm/dL (14.0-18.0); LYMPHOCYTES 8.4 %; MCH 28.1 pg (26.0-34.0); MCHC 32.9 g/dL (28.0-37.0); MCV 85.5 fL (80.0-100.0); MONOCYTES 7.4 %; NUCLEATED RBCS 0 /100WBC; PLATELET COUNT* 211 thou/uL (150-400); POLYS 78.9 %; RBC 5.88 mil/uL (4.50-6.00); RDW-CV 14.9 % (10.5-14.5); WBC 8.4 thou/uL (4.0-11.0)
[2021-04-27 06:03] LABS: ALBUMIN 2.8 g/dL (3.4-5.0); CALCIUM 8.8 mg/dL (8.5-10.1); CREATININE 1.6 mg/dL (0.6-1.3); POTASSIUM 4.6 mmol/L (3.5-5.1); TOTAL BILIRUBIN 0.7 mg/dL (<0.1-1.0); TOTAL PROTEIN 6.2 g/dL (6.4-8.2)
[2021-04-27 08:00] VITALS: BP 109/76
[2021-04-27 12:00] VITALS: BP 104/72
[2021-04-27 16:00] VITALS: BP 89/58
[2021-04-27 20:00] VITALS: BP 123/76
[2021-04-28] VITALS: BP 111/77
[2021-04-28 04:00] VITALS: BP 133/89
[2021-04-28 08:00] VITALS: BP 100/67
[2021-04-28] MEDS ORDERED: PREDNISONE 10 M10 MG PO (09:35)
[2021-04-28 11:26] VITALS: BP 113/73
[2021-04-28 11:49] VITALS: BP 113/73
== END 2021-04-28 12:50 | disposition home or self-care (01) | DRG 291 ==
LOC: M.ERS 16:33 → M.TBA-ER 17:17 → M.2W 04-26 21:21
PROVIDERS: Family Medicine; Internal Medicine; Internal Medicine Cardiovascular Disease; ADMIT Internal Medicine; ATTEND Internal Medicine
DX: I13.0 Hypertensive heart and chronic kidney disease with heart failure and stage 1 through stage 4 chronic kidney disease, or unspecified chronic kidney disease (principal); I50.23 Acute on chronic systolic (congestive) heart failure; J96.21 Acute and chronic respiratory failure with hypoxia; N17.9 Acute kidney failure, unspecified; J44.1 Chronic obstructive pulmonary disease with (acute) exacerbation; E11.22 Type 2 diabetes mellitus with diabetic chronic kidney disease; I42.9 Cardiomyopathy, unspecified; N18.9 Chronic kidney disease, unspecified; I27.20 Pulmonary hypertension, unspecified; E78.5 Hyperlipidemia, unspecified; Z20.822 Contact with and (suspected) exposure to COVID-19; J44.9 Chronic obstructive pulmonary disease, unspecified; Z77.090 Contact with and (suspected) exposure to asbestos; Z79.899 Other long term (current) drug therapy; Z87.891 Personal history of nicotine dependence; Z82.49 Family history of ischemic heart disease and other diseases of the circulatory system

== ENCOUNTER 2021-05-11 13:07 | Inpatient (IN) | payer OTHER ==
[~2021-05-11] VITALS: Ht 172.7 cm; Wt 69.4 kg
[~2021-05-11 13:07] MED LIST changes: +EFFER-K 20 MEQ20 ME1 PO; +KLOR-CON M2020 MEQ PO; +METFORMIN HCL500 M2 PO; +NORTRIPTYLINE H10 M2 PO; +STIOLTO RESPIMAT4 GM INH; +TOPROL XL25 MG PO
[2021-05-11 13:15] VITALS: BP 106/68
--- NOTE | 2021-05-11 14:22 | EKG ---
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 : 1940 Requested By: Ayan Villatoro Order Number: [id number] MD: Efren Tavares Measurements Intervals [place] Rate: 143 P: 233 LA: 107 QRS: 166 QRSD: 149 T: 32 QT: 362 QTc: 559 Interpretive Statements Probable sinus tachycardia Right bundle branch block with right axis deviation Compared to ECG 04/24/2021 16:36:53 No significant interval change Electronically Signed On 05-11-2021 14:22:19 MILL RECORDER by Efren Tavares [email or web address] <ELECTRONICALLY SIGNED> By: Efren Tavares MD, [facility] 05/11/21 1422 1345 1345 Efren Tavares MD, [facility] /EPI
[2021-05-11 14:32] LABS: CALCIUM 9.5 mg/dL (8.5-10.1); CREATININE 1.6 mg/dL (0.6-1.3)
[2021-05-11 14:33] LABS: ABSOLUTE EOSINOPHILS 0.1 thou/uL (0.0-0.7); ABSOLUTE LYMPHOCYTES 1.1 thou/uL (0.8-5.3); ABSOLUTE MONOCYTES 0.8 thou/uL (0.0-1.2); ABSOLUTE NEUTROPHILS 10.9 thou/uL (1.6-8.1); BASOPHILS 0.1 %; HEMATOCRIT 53.1 % (42.0-52.0); HEMOGLOBIN 17.2 gm/dL (14.0-18.0); LYMPHOCYTES 8.4 %; MCH 28.2 pg (26.0-34.0); MCHC 32.4 g/dL (28.0-37.0); MCV 87.1 fL (80.0-100.0); MONOCYTES 6.3 %; MPV 8.5 fl. (7.2-11.1); NUCLEATED RBCS 0 /100WBC; PLATELET COUNT* 275 thou/uL (150-400); POLYS 84.2 %; RDW-CV 15.5 % (10.5-14.5); WBC 12.9 thou/uL (4.0-11.0)
[2021-05-11 21:30] VITALS: BP 89/56
[2021-05-11 21:45] VITALS: BP 110/76
[2021-05-12] VITALS: BP 104/78
[2021-05-12 04:00] VITALS: BP 115/82
[2021-05-12 04:57] LABS: HEMATOCRIT 49.9 % (42.0-52.0); HEMOGLOBIN 16.7 gm/dL (14.0-18.0); MCH 28.2 pg (26.0-34.0); MCHC 33.4 g/dL (28.0-37.0); MCV 84.3 fL (80.0-100.0); MPV 8.6 fl. (7.2-11.1); NUCLEATED RBCS 0 /100WBC; PLATELET COUNT* 225 thou/uL (150-400); RBC 5.91 mil/uL (4.50-6.00); RDW-CV 15.6 % (10.5-14.5); WBC 11.9 thou/uL (4.0-11.0)
[2021-05-12 05:07] LABS: CALCIUM 8.8 mg/dL (8.5-10.1); CREATININE 1.4 mg/dL (0.6-1.3); POTASSIUM 4.5 mmol/L (3.5-5.1)
[2021-05-12 08:00] VITALS: BP 115/79
[2021-05-12 08:16] LABS: ABSOLUTE EOSINOPHILS 0.2 thou/uL (0.0-0.7); ABSOLUTE MONOCYTES 0.2 thou/uL (0.0-1.2); ABSOLUTE NEUTROPHILS 10.5 thou/uL (1.6-8.1); PLATELET ESTIMATE ADEQUATE
[2021-05-12 12:00] VITALS: BP 104/79
[2021-05-12 16:00] VITALS: BP 97/68
[2021-05-12 20:30] VITALS: BP 97/71
[2021-05-13] VITALS: BP 97/72
[2021-05-13 04:00] VITALS: BP 103/70
[2021-05-13 04:08] LABS: ABSOLUTE LYMPHOCYTES 0.7 thou/uL (0.8-5.3); ABSOLUTE MONOCYTES 0.4 thou/uL (0.0-1.2); ABSOLUTE NEUTROPHILS 10.5 thou/uL (1.6-8.1); BASOPHILS 0.1 %; EOSINOPHILS 0.1 %; HEMATOCRIT 50.2 % (42.0-52.0); HEMOGLOBIN 16.4 gm/dL (14.0-18.0); LYMPHOCYTES 5.8 %; MCH 28.2 pg (26.0-34.0); MCHC 32.8 g/dL (28.0-37.0); MCV 86.1 fL (80.0-100.0); MONOCYTES 3.5 %; MPV 8.3 fl. (7.2-11.1); NUCLEATED RBCS 0 /100WBC; PLATELET COUNT* 231 thou/uL (150-400); POLYS 90.5 %; RBC 5.83 mil/uL (4.50-6.00); RDW-CV 15.4 % (10.5-14.5); WBC 11.6 thou/uL (4.0-11.0)
[2021-05-13 04:38] LABS: ALBUMIN 2.4 g/dL (3.4-5.0); CALCIUM 9.6 mg/dL (8.5-10.1); CREATININE 1.5 mg/dL (0.6-1.3); MAGNESIUM 2.3 mg/dL (1.8-2.4); POTASSIUM 4.9 mmol/L (3.5-5.1); TOTAL BILIRUBIN 0.3 mg/dL (<0.1-1.0); TOTAL PROTEIN 6.2 g/dL (6.4-8.2)
[2021-05-13 08:00] VITALS: BP 110/66
[2021-05-13 12:00] VITALS: BP 117/76
--- NOTE | 2021-05-13 14:23 | CON ---
[address] [address] CONSULTATION Name: MARÍA RIVAS Room: [address] ADM IN M.R.#: [id number] Admission: 05/11/21 Attend Phys: Michael Miner MD Discharge: Date of : 40 Report #: [id number] THIS REPORT FOR: cc: Mikie Whitaker Ahmad W. DO Pervez, Adeel MD ~ DATE OF CONSULTATION: 05/12/2021 REQUESTING PHYSICIAN: Michael Miner MD INDICATION FOR CONSULTATION: Respiratory failure. HISTORY OF PRESENT ILLNESS: This is an 80-year-old gentleman. He states that I see him in my office. I do not have the office records available at this time. I do note that I have seen him at least during the last hospitalization here. He does have a history of interstitial lung disease as well as congestive heart failure and COPD. He is vaccinated and boosted for COVID-19. He does have mild renal insufficiency as well. He is now admitted with acute respiratory failure. He currently reports no shortness of breath at baseline. At baseline, he states he uses 4 liters of oxygen. At this time, he is using 8 liters. He has minimal sputum production. He does not have much swelling of lower extremities. He has been diuresed. He essentially had no other complaints at this time. He still, however, states that he is more short of breath than his baseline. REVIEW OF SYSTEMS: For 12 points is negative except as mentioned above; however, communication is limited as the patient is hard of hearing. PAST MEDICAL HISTORY: COPD, interstitial lung disease, type 2 diabetes, rotator cuff tear, hypertension, Meniere's disease, congestive heart failure. The last available echocardiogram is from last month and shows a left ventricular ejection fraction of 35-40% with a pulmonary artery systolic elevated to 49. He had a CTA chest last fall, which did not show evidence of pulmonary emboli. V/Q scan was intermediate probability. Chronic renal insufficiency, baseline creatinine is around 1.4. SOCIAL HISTORY: Previous history of smoking, has now discontinued. No known history of heavy alcohol use or illegal drug use. CURRENT MEDICATIONS: List in [facility] reviewed. HOME MEDICATIONS: List in [facility] reviewed. ALLERGIES: No known drug allergies. PHYSICAL EXAMINATION: [place] [address] CONSULTATION Name: MARÍA RIVAS Room: [address] [place] [facility]#: [id number] Admission: 05/11/21 Attend Phys: Michael Miner MD Discharge: Date of : 40 Report #: [id number] GENERAL: He is alert, awake and oriented; however, hard of hearing. VITAL SIGNS: In the records reviewed. THROAT: No erythema. NECK: Does not show raised JVP. CHEST: Breath sounds are bilaterally equal, decreased. Occasional basal rales. HEART: Regular. There is no murmur. There is some tachycardia, heart rate is 110-120. ABDOMEN: Soft and nontender. EXTREMITIES: Lower extremities, no edema and no calf tenderness. LABORATORY DATA: The patient's chest x-ray is consistent with an interstitial lung disease. The patient's lab work is in [facility] and this is reviewed. ASSESSMENT AND PLAN: 1. Acute on chronic hypoxemic respiratory failure. Continue to titrate oxygen. 2. Chronic obstructive pulmonary disease exacerbation. Agree with Solu-Medrol and nebulized bronchodilators as currently ordered. 3. Interstitial lung disease. His previous connective tissue markers are negative. He is a potential candidate for fiberglass inhibitor therapy long-term as an outpatient after recovery from current episode. 4. Pulmonary infiltrates. He has recently been in the hospital; therefore, a case could be made to broaden antibiotic coverage; however, I do not see any definite new infiltrates, but this is tough to evaluate if I would go ahead and do a CT chest without contrast. 5. Chronic systolic congestive heart failure. He has received Lasix already. At this time, he does not appear to be significantly fluid overloaded. Cardiology Service is on the case. 6. Evaluation for thromboembolic phenomena. I would order a D-dimer for tomorrow morning. If it is elevated, then suggest obtaining venous Dopplers. May also considered in that case obtaining a repeat echo when looking at the right heart again, however, I recommend being cautious in doing a CTA chest as he is higher than average risk for IV dye injury and also if he does undergo a CTA chest and we will need to hydrate him first. Note that his baseline creatinine is 1.1 and his creatinine is elevated right now to 1.4. Thanks for this consultation. <ELECTRONICALLY SIGNED> By: Evin Hebert MD 05/13/21 1423 [id number] 1959Anoreen Hebert MD /nt
[2021-05-13 16:00] VITALS: BP 115/69
[2021-05-13 20:30] VITALS: BP 115/72
[2021-05-14 00:17] VITALS: BP 109/84
[2021-05-14 04:15] LABS: HEMATOCRIT 46.8 % (42.0-52.0); HEMOGLOBIN 15.1 gm/dL (14.0-18.0); MCH 27.6 pg (26.0-34.0); MCHC 32.2 g/dL (28.0-37.0); MCV 85.8 fL (80.0-100.0); MPV 8.2 fl. (7.2-11.1); RBC 5.46 mil/uL (4.50-6.00); RDW-CV 15.1 % (10.5-14.5); WBC 12.8 thou/uL (4.0-11.0)
[2021-05-14 04:33] LABS: CREATININE 1.3 mg/dL (0.6-1.3); POTASSIUM 4.5 mmol/L (3.5-5.1)
[2021-05-14 06:26] VITALS: BP 115/74
[2021-05-14 08:00] VITALS: BP 123/76
[2021-05-14 12:00] VITALS: BP 115/70
[2021-05-14 16:00] VITALS: BP 107/69
--- NOTE | 2021-05-14 17:42 | CARDNUC ---
[place] [address] CARDIAC NUCLEAR IMAGING REPORT Name: MARÍA RIVAS AMISH Room: [address] IN [facility]#: [id number] Admission: 05/11/21 Attend Phys: Michael Miner, Discharge: Date of : 40 Date of Service: 05/14/21 1742 Report #: [id number] THIS REPORT FOR: cc: Mikie Whitaker Ahmad W. DO Liston, Michael J. MD [facility] ~ APPROVED REPORT Imaging Protocol: Stress Tc-99m/Rest Tc-99m 1 day Study performed: 05/12/2021 13:20:00 Indication: Dyspnea Patient Location: In-Patient Ht: 5 ft 8 in Wt: 162 lbs BSA: 1.87 m2 HR: 96 bpm BP: 103/78 mmHg BMI: 24.62 Medical History Medical History: HTN, COPD, Diabetes Medications: Aspirin, Losartan, Metoprolol Allergies: No known drug allergies Cardiac Risk Factors: Past Smoker, Tobacco History (Former), SOB, HTN Meds Held (24 hrs): Metoprolol, Losartan Resting Data Rest SPECT myocardial perfusion imaging was performed in supine position 30 minutes following the intravenous injection of 9.8 mCi of Tc-99m Sestamibi. Time of rest injection: 08:20 The images were gated to evaluate regional wall motion and calculate left ventricular ejection fraction. Administration Route: IV Administration Site: Right AC Pharmacologic Stress Pharmacologic stress test was performed by injecting Regadenoson 0.4 mg IV push over 10-15 seconds immediately followed by the intravenous injection of 32.9 mCi of Tc-99m Sestamibi. Time of stress injection: 09:30 Administration Route: IV Administration Site: Right AC Heart Rate at time of stress injection: 96 [place] [address] CARDIAC NUCLEAR IMAGING REPORT Name: MARÍA RIVAS Room: [address] IN ..#: [id number] Admission: 05/11/21 Attend Phys: Michael Miner, Discharge: Date of : 40 Date of Service: 05/14/21 1742 Report #: [id number] Gated Stress SPECT was performed 45 minutes after stress injection. The images were gated to evaluate regional wall motion and calculate left ventricular ejection fraction. Stress Test Details Stress Test: Pharmacologic stress testing performed using 0.4 mg of regadenoson per 5 mL given IV over 10 seconds. Reason for pharmacologic stress test: physical limitation. 60 mg caffeine given for other. HR Max Heart Rate (APMHR): 140 bpm Resting HR: 96 bpm Target HR (85% APMHR): 119 bpm Max HR Achieved: 107 bpm % of APMHR: 76 HR response to stress: Normal HR response to stress BP Resting BP: 103/78 mmHg Max BP: 120/82 mmHg Recovery BP: 99/66 mmHg BP response to stress: Normal blood pressure response to stress. ECG Resting ECG: Sinus Rhythm, RBBB Stress ECG: Sinus Rhythm, RBBB ST Change: None Arrhythmia: None Recovery ECG: Sinus Rhythm, RBBB Recovery ST Change: None Recovery Arrhythmia: None Clinical Reason for Termination: Completed protocol Stress Symptoms: None The patient tolerated Lexiscan infusion without significant cardiac symptoms. Stress ECG Conclusion The baseline EKG shows sinus rhythm with right bundle branch block and nonspecific ST segment depression in the anterolateral leads. EKGs obtained during and post Lexiscan infusion show sinus rhythm with no significant ST segment changes compared baseline. Study Quality Study: Good Artifact: Mild Diaphragm[place] [address] CARDIAC NUCLEAR IMAGING REPORT Name: RIVASMARÍA AMISH Room: [address]#: [id number] Admission: 05/11/21 Attend Phys: Michael Miner, Discharge: Date of : 40 Date of Service: 05/14/21 1742 Report #: [id number] Study Data At rest, the left ventricular ejection fraction was 36%.. Post stress, the left ventricular ejection was 27%.. TID = 0.94. Perfusion Perfusion images obtained in the supine position at rest and post Lexiscan stress show mild photopenia in the basal portion inferior wall that resolves with post-rest prone imaging consistent with mild diaphragmatic attenuation artifact. No other significant fixed or reversible defects are identified. Post-rest prone imaging shows uniform uptake of the radioisotope throughout the myocardium. Wall Motion Global hypokinesis with dyssynergy noted. Nuclear Conclusion ECG Findings: non-diagnostic Clinical Findings: negative for ischemia Nuclear Findings: negative for ischemia Exercise Capacity: abnormal Left Ventricular Function: abnormal Perfusion images show no defect to suggest infarct or ischemia. Left ventricular systolic function is severely decreased. This is a high risk study due to severe left ventricular systolic dysfunction. <Conclusion> The baseline EKG shows sinus rhythm with right bundle branch block and nonspecific ST segment depression in the anterolateral leads. EKGs obtained during and post Lexiscan infusion show sinus rhythm with no significant ST segment changes compared baseline. <ELECTRONICALLY SIGNED> By: Garcia Abdalla MD, FACC 05/14/211741 41 41 Garcia Abdalla MD, FACC /INF
[2021-05-14 20:00] VITALS: BP 110/66
[2021-05-15 05:25] LABS: HEMATOCRIT 46.2 % (42.0-52.0); HEMOGLOBIN 15.4 gm/dL (14.0-18.0); MCH 28.3 pg (26.0-34.0); MCHC 33.3 g/dL (28.0-37.0); MPV 8.4 fl. (7.2-11.1); RBC 5.43 mil/uL (4.50-6.00); RDW-CV 15.1 % (10.5-14.5); WBC 10.5 thou/uL (4.0-11.0)
[2021-05-15 05:36] LABS: CREATININE 1.4 mg/dL (0.6-1.3); MAGNESIUM 2.1 mg/dL (1.8-2.4); POTASSIUM 4.9 mmol/L (3.5-5.1)
[2021-05-15 06:11] VITALS: BP 119/80
[2021-05-15 08:00] VITALS: BP 125/79
[2021-05-15 11:38] VITALS: BP 104/66
[2021-05-15 16:21] VITALS: BP 114/72
[2021-05-15 20:00] VITALS: BP 103/72
[2021-05-16] VITALS: BP 93/53
[2021-05-16 04:00] VITALS: BP 98/66
[2021-05-16 08:00] VITALS: BP 96/65
--- NOTE | 2021-05-16 09:45 | CON ---
[address] [address] CONSULTATION Name: MARÍA RIVAS Room: [address] IN M.R.#: [id number] Admission: 05/11/21 Attend Phys: Michael Miner MD Discharge: Date of : 40 Report #: [id number] THIS REPORT FOR: cc: Mikie Whitaker Ahmad W. DO Biggs, F. Douglas MD [facility] ~ DATE OF CONSULTATION: 05/15/2021 CARDIOLOGY HOSPITAL VISIT NOTE HISTORY OF PRESENT ILLNESS: Today, the patient feels well and has no complaints. He is not having any shortness of breath. He says he is feeling much better. He is on 5 liters of oxygen today, that his normal amount that he takes at home. He is having no chest pain. He is not having any edema. Today, looks well, feels well and seems to be doing well. PHYSICAL EXAMINATION: VITAL SIGNS: His temperature is 36.8, pulse 93, respirations 20, blood pressure 119/88, pulse ox on 5 liters was 97%. NECK: There was no jugular venous distention. LUNGS: Clear to auscultation and percussion. Breath sounds were decreased diffusely; however, and there was an increased expiratory phase. HEART: The rhythm was regular, the rate was approximately 90. There was normal first and second heart sound. I could not hear a murmur, rub or gallop. ABDOMEN: Soft, flat, nontender. There are no palpable masses, no organomegaly. EXTREMITIES: Reveal no cyanosis, clubbing or edema. NEUROLOGIC: The patient mentates normally, talked normally, moved all extremities normally. IMPRESSION: 1. Severe chronic obstructive pulmonary disease as well as pulmonary fibrosis. 2. Acute on chronic respiratory failure. 3. Nonischemic cardiomyopathy. 4. Congestive heart failure, now compensated. RECOMMENDATIONS: I will continue his current therapy. He is doing well and I will sign off. Note that his principal issue is really his COPD. <ELECTRONICALLY SIGNED> By: Kunal Solares MD, FACC 05/16/21 0945 [id number]. Daniel Solares MD, FACC /nt
[2021-05-16 11:52] VITALS: BP 92/58
[2021-05-16 16:02] VITALS: BP 92/65
[2021-05-16 20:00] VITALS: BP 100/64
[2021-05-17] VITALS: BP 117/70
[2021-05-17 04:00] VITALS: BP 100/69
[2021-05-17 04:35] LABS: CALCIUM 9.1 mg/dL (8.5-10.1); CREATININE 1.8 mg/dL (0.6-1.3); POTASSIUM 4.6 mmol/L (3.5-5.1)
[2021-05-17 06:06] LABS: HEMOGLOBIN 15.5 gm/dL (14.0-18.0); MCH 27.8 pg (26.0-34.0); MCHC 32.4 g/dL (28.0-37.0); MCV 85.8 fL (80.0-100.0); MPV 8.6 fl. (7.2-11.1); RBC 5.59 mil/uL (4.50-6.00); RDW-CV 15.3 % (10.5-14.5); WBC 12.7 thou/uL (4.0-11.0)
[2021-05-17 08:00] VITALS: BP 104/69
[2021-05-17] MEDS ORDERED: DEMADEX20 MG PO (10:35)
[2021-05-17] MEDS ORDERED: PREDNISONE 10 M10 MG PO (10:35)
[2021-05-17] MEDS ORDERED: DOXYCYCLINE 10100 MG PO (10:35)
[2021-05-17 12:00] VITALS: BP 106/68
[2021-05-17 14:38] VITALS: BP 106/68
[2021-05-17] MEDS ORDERED: PULMICORT FLEX90 MCG INH (15:08)
== END 2021-05-17 17:06 | disposition home health service (06) | DRG 193 ==
LOC: M.ERS 13:07 → M.2W 17:27 → M.TBA-ER 17:27 → M.2W 20:41
PROVIDERS: Emergency Medicine; Internal Medicine; Internal Medicine Critical Care Medicine; ADMIT Internal Medicine; ATTEND Internal Medicine
PROC: 5A0935A Assistance with Respiratory Ventilation, Less than 24 Consecutive Hours, High Flow/Velocity Cannula (ICD-10-PCS; principal; 2021-05-12)
PROC: 5A0935A Assistance with Respiratory Ventilation, Less than 24 Consecutive Hours, High Flow/Velocity Cannula (ICD-10-PCS; 2021-05-13)
DX: J15.9 Unspecified bacterial pneumonia (principal); I50.23 Acute on chronic systolic (congestive) heart failure; J96.22 Acute and chronic respiratory failure with hypercapnia; J96.21 Acute and chronic respiratory failure with hypoxia; I73.00 Raynaud's syndrome without gangrene; N18.9 Chronic kidney disease, unspecified; E11.22 Type 2 diabetes mellitus with diabetic chronic kidney disease; Z79.4 Long term (current) use of insulin; Z20.822 Contact with and (suspected) exposure to COVID-19; I25.5 Ischemic cardiomyopathy; H81.09 Meniere's disease, unspecified ear

== ENCOUNTER → 2021-06-11 | Outpatient (CLI) | payer OTHER ==
[~2021-06-11] MED LIST changes: +DEMADEX20 MG PO; +DOXYCYCLINE 10100 MG PO; +PULMICORT FLEX90 MCG INH
[2021-06-11 14:31] LABS: ALBUMIN 3.3 g/dL (3.4-5.0); CALCIUM 9.5 mg/dL (8.5-10.1); CREATININE 1.4 mg/dL (0.6-1.3); POTASSIUM 4.8 mmol/L (3.5-5.1); TOTAL BILIRUBIN 0.5 mg/dL (<0.1-1.0)
== END ==
LOC: M.LAB 13:39
PROVIDERS: ATTEND Registered Nurse
DX: I50.42 Chronic combined systolic (congestive) and diastolic (congestive) heart failure (principal)